=== PATIENT | female | born 1965 | race Caucasian/White ===

== ENCOUNTER 2018-12-20 13:07 | Emergency (ER) | payer OTHER, SELFPAY ==
[2018-12-20 13:09] VITALS: BP 168/75; PULSE 68; RESP 18; TEMP 36.5; O2SAT 100
--- NOTE | 2018-12-20 13:30 | DI.RAD_ITS ---
SYMPTOMS/DIAGNOSIS: ELBOW PAIN; SHOULDER PAIN RIGHT ELBOW: Three views. No acute bone or joint abnormality is identified. The soft tissues are unremarkable. IMPRESSION: No acute abnormality. RIGHT SHOULDER: Five views. No bone or joint abnormality is identified. The soft tissues are unremarkable. IMPRESSION: No acute abnormality.
--- NOTE | 2018-12-20 13:30 | DI.CT_ITS ---
SYMPTOMS/DIAGNOSIS: HEADACHE CT BRAIN: No priors. A noncontrast cranial CT was performed. The ventricular system is normal in appearance. There is no evidence of an intracranial mass lesion. There is no evidence of a subdural or epidural hematoma. No focal areas of decreased attenuation are seen. IMPRESSION: Normal noncontrast cranial CT. The findings were discussed with the Emergency Department on the date of the examination.
--- NOTE | 2018-12-20 13:35 | W.ED.GENAD ---
Discharge Plan Disposition Patient Disposition: HOME Discharge Details Chief Complaint: GenMedical Clinical Impression: Headache, Medial epicondylitis of right elbow, Pain in right shoulder Primary Care Provider: None,None ED Provider: Fadi Klein Home Meds and New Rx's Prescriptions: No Action No Known Home Meds RF: 0 Discharge Instructions Instructions: Tennis Elbow (ED), Shoulder Pain (ED), General Headache (ED) Additional Instructions: It is recommended that you stay well-hydrated and get plenty of rest. You may use Excedrin Migraine, naproxen, or ibuprofen or other gnks-bea-pxagxip medications as needed for continued discomfort. Please use provided forearm brace over the next 2 weeks to see if this helps resolve your symptoms. Feel free to return to the emergency department for any worsening symptoms or further concerns you may have otherwise follow the recommended follow-up schedule with your primary care provider. Stand Alone Forms: Work Release Referrals: [facility] [Provider Group] (As needed for reassessment) Medical Decision Making Patient presenting to the emergency department for chief complaint of right arm numbness and tingling that is intermittent and more persistent in the morning, and headache and malaise that she has had over the past couple days. Patient did see primary care provider who was ordered an outpatient MRI but has not been scheduled yet. Patient states today she had increase in her symptoms and was concerned so came into the emergency department. Patient states some chills without fever, denies focal neurological deficits, denies chest pain shortness of breath. Physical exam shows medial epicondyle tenderness with resolution of symptoms with counterforce pressure of the forearm. And anterior right shoulder tenderness. Examination of right upper extremity is otherwise unremarkable. neurological exam is unremarkable, no meningeal symptoms, normal cardiac and respiratory examination. Plan to check labs and noncontrast CT head. Given that patient's numbness and tingling has been going on for weeks now with associated headache over the last couple days I do feel that CT imaging is warranted but feel that patient may be experiencing migraine headache with associated tendinopathy's of the right upper extremity. Pending results patient given IV fluids and ketorolac After review of labs and CT imaging showing no acute abnormalities patient was reassessed. Patient states improvement of headache symptoms, blurry vision, and right upper extremity discomfort. Patient given a counterforce brace for right forearm and work note so that she may rest over the next couple days. Patient encouraged to use Excedrin Migraine or other NSAIDs [id number] as needed for discomfort. Given patient's complaint of headache fatigue and numbness and tingling I do see primary care providers concern for MS as stated by patient, but at this time I feel that patient's symptoms may be tendinopathy's and secondary headache. Given patient's complaint of stiff neck and chills along with headache she was offered a lumbar puncture but she refused this at this time. Patient is stable nontoxic and improving with conservative therapy so I do feel that this is okay and I also feel that patient may wait for MRI head she has no for focal neurological findings on exam. Return precautions discussed. After discussion of diagnosis and plan of care patient has no further needs, questions, or concerns and states clear understanding to return to the emergency department for any worsening symptoms or further concerns HPI General Mode of arrival: ambulatory. Date/Time Provider Initiated Documentation: 12/20/18 13:11. Limitations to Documentation: no limitations. Information obtained by: patient and RN notes reviewed. History of Present Illness 53 year old F presents to the emergency department with the chief complaint of right arm numbness, headache, fatigue, described as moderate, with intensity rated at 6. Quality is described as aching, and is localized to the head, right and upper extremity. Patient started experiencing this day(s) (2) and it has been constant. No relieving factors improve symptom(s), Patient did receive the following treatments prior to arrival, none Related Data Home Medications Medication Instructions Recorded Confirmed Unknown [No Known Home Meds] 12/20/18 12/20/18 Allergies Allergy/AdvReac Type Severity Reaction Status Date / Time No Known Allergies Allergy Unverified 12/20/18 13:12 General Stated Complaint: GenMedical SILVA: 3 Review of Systems Constitutional Denies body ache(s), Reports chills, Denies fever(s), Reports headache(s) and Reports malaise Eyes Denies change in vision ENT Denies dizziness, Reports headache(s) and Reports neck pain Cardiovascular Denies chest pain, Denies syncope and Denies dyspnea Respiratory Denies cough and Denies dyspnea Gastrointestinal Denies abdominal pain, Denies nausea and Denies vomiting Musculoskeletal Denies back pain, Reports neck pain, Reports numbness, Reports radiating pain into limb and Denies tingling Neurologic Reports as per HPI, Denies dizziness, Denies syncope, Reports headache(s), Reports numbness, Denies sensory deficit and Denies tingling [facility] Social History Smoking and Tabacco status: Current every day Exam Const General: cooperative, healthy appearing, no acute distress and well groomed Orientation: alert, awake and oriented x3 HENMT Head: normal to inspection and atraumatic Ears: hearing grossly normal bilaterally and unable to visualize TM bilaterally (Due to cerumen impaction) Mouth: oral mucosae normal, lip normal, tongue normal and moist mucous membranes Throat: posterior oropharynx normal, tonsils normal and uvula midline Eyes Visual Hardwick: normal visual hardwick by confrontation Alignment and Position: alignment normal Periorbital: periorbital findings normal Eyelids: eyelids normal Sclera: sclerae normal Cornea: corneas normal Pupils: PERRL EOM: EOM intact bilaterally and No nystagmus Neck Neck: normal visual inspection, full ROM, no lymphadenopathy and no meningeal signs Thyroid: lateral enlargement on the right and nontender Resp Effort & Inspection: normal respiratory effort and able to speak in complete sentences Auscultation: clear to auscultation bilaterally Cardio Rate: regular rate Rhythm: regular rhythm Heart Sounds: S1 normal and S2 normal Neuro General: alert, awake, oriented x3, gait normal, tone normal, moves all extremities, CN's II-XI intact bilaterally and not confused Cranial Nerves: no nystagmus Cognition: normal cognition Speech: speech normal Motor: muscle tone normal throughout, strength 5/5 throughout, no pronator drift, no movement abnormalities noted and no fasciculations Sensory Exam: no sensory deficits noted Coordination: hvxhue-yi-koal test normal, Does not sway with eyes open, rapid alternating movement UE normal and rapid alternating movement LE normal Extrem Right upper extremity: shoulder/upper arm Details: tenderness Location: over the subacromial bursa and over the deltoid bursa, axillary nerve sensory function normal and normal ROM; no swelling, elbow/forearm Details: tenderness Location: of the olecranon and of the medial epicondyle, normal ROM and distal pulses intact; no swelling and wrist Details: normal to inspection and normal ROM; no tenderness Left upper extremity: normal to inspection Course Vital Signs Temperature 36.5 C 12/20/18 13:09 Pulse 68 12/20/18 13:09 Respiratory Rate 18 12/20/18 13:09 Blood Pressure 168/75 H 12/20/18 13:09 Pulse Oximetry 100 12/20/18 13:09 Temperature 36.5 C 12/20/18 13:09 Temperature Source Skin 12/20/18 13:09 Pulse 68 12/20/18 13:09 Respiratory Rate 18 12/20/18 13:09 Blood Pressure 168/75 H 12/20/18 13:09 Pulse Oximetry 100 12/20/18 13:09 Oxygen Delivery Method Room Air 12/20/18 13:09 Oxygen Flow Rate 0 12/20/18 13:09 Pain Level 6 12/20/18 13:09
[2018-12-20 13:45] LABS: Abs Immature Grans 0.02 k/cumm (0.0-0.09); Absolute Basophil Count 0.04 k/cumm (0.0-0.2); Absolute Eosinophil Count 0.34 k/cumm (0.0-0.7); Absolute Lymphocyte Count 1.49 k/cumm (1.2-3.4); Absolute Neutrophil Count 6.42 k/cumm (1.2-6.7); Basophils % 0.4; Eosinophils % 3.8; HGB 13.7 g/dL (12.0-15.5); Immature Grans % 0.2; Lymphocytes % 16.7; Mean Corp. HGB Concentration 33.4 g/dL (32.0-36.0); Mean Corpuscular Hemoglobin 29.8 pg (27.0-33.0); Mean Corpuscular Volume 89.1 fL (80-95); Mean Platelet Volume 11.1 fL (8.0-11.0); Monocytes % 6.7; Neutrophils % 72.2; Platelet Count 240 x1000/uL (130-400); RBC Distribution Width 12.5 % (11.7-14.6); White Blood Cell Count 8.91 k/cumm (4.4-10.8)
[2018-12-20] MEDS: Normal Saline 1,000 ML 1000 ML IV (13:45)
[2018-12-20] MEDS: Ketorolac 30 MG/ML VIAL IVP (13:50)
[2018-12-20 14:05] LABS: ALT 20 U/L (12-78); AST 18 U/L (15-37); Albumin 3.3 g/dL (3.4-5.0); Alkaline Phosphatase 77 U/L (46-116); Anion Gap 5.3 mmol/L (3-11); BUN 15 mg/dL (7-18); Bilirubin, Total 0.5 mg/dL (0.2-1.0); CO2 28.7 mmol/L (21.0-32.0); CREATININE 0.75 mg/dL (0.55-1.02); Calcium 9.1 mg/dL (8.5-10.1); Chloride 105 mmol/L (98-107); Glucose 127 mg/dL (70-100); Potassium 3.8 mmol/L (3.5-5.1); Sodium 139 mmol/L (136-145); TSH (W/Ref FT4) 1.45 uIU/mL (0.358-3.74); Total Protein 7.1 g/dL (6.4-8.2)
[2018-12-20 16:00] VITALS: BP 152/64; PULSE 57; RESP 16; TEMP 36.5; O2SAT 96
[2018-12-20 18:42] VITALS: RESP 16
== END 2018-12-20 16:01 | disposition home or self-care (01) ==
PROVIDERS: Emergency Provider Nurse Practitioner Family
DX: R51 Headache (principal); M77.01 Medial epicondylitis, right elbow; M25.511 Pain in right shoulder
CPT/HCPCS: 36415; 80053; 96361; 96374; 99284; 70450; 73030; 73080; 84443; 85025; J1885

== ENCOUNTER 2018-12-28 00:33 | Outpatient (CLI) | payer OTHER, SELFPAY ==
[2018-12-28] MEDS: Gadoterate meglumine 20 ML VIAL IVP (10:27)
--- NOTE | 2018-12-28 10:38 | DI.MRI_ITS ---
SYMPTOMS/DIAGNOSIS: MIGRAINE HEADACHE, G43.909, PARESTHESIAS, R20.2 MRI OF THE BRAIN: Pre and post contrast examination was performed. Comparison CT scan is 12/20/18. There are a few tiny foci of T 2 hyperintensity in the white matter on the FLAIR and T 2 weighted images. Otherwise there is normal eric/white matter signal. The ventricles are intact. The basilar cisterns are patent. There is no acute midline shift or mass effect. The diffusion weighted images have a normal appearance. Gradient images show no intracranial hemorrhage. Following contrast administration no enhancing masses are seen. There is a flow void in the [facility]. The pituitary gland appears grossly unremarkable. The visualized paranasal sinuses are clear. IMPRESSION: A few tiny T 2 hyperintense foci in the white matter. This may represent early small vessel ischemic disease. Demyelinating processes can not be entirely excluded. No enhancing masses, acute infarct or intracranial hemorrhage is present.
== END 2018-12-28 00:53 ==
PROVIDERS: PCP Internal Medicine; Visit Provider Internal Medicine
DX: G43.909 Migraine, unspecified, not intractable, without status migrainosus (principal); R20.2 Paresthesia of skin; I67.89 Other cerebrovascular disease
CPT/HCPCS: 70553

== ENCOUNTER 2020-01-23 10:00 | Outpatient (CLI) | payer SELFPAY ==
[2020-01-28 08:19] LABS: COVID-19 RT-PCR Result Not Detected (NotDetected)
== END 2020-01-23 10:20 ==
PROVIDERS: PCP Internal Medicine; Visit Provider Internal Medicine
DX: Z11.59 Encounter for screening for other viral diseases (principal)
CPT/HCPCS: U0003

== ENCOUNTER 2020-10-28 14:51 | Outpatient (REF) | payer OTHER, SELFPAY ==
[2020-10-28 13:20] LABS: Abs Immature Grans 0.01 10^3/uL (0.0-0.06); Absolute Basophil Count 0.06 10^3/uL (0.0-0.2); Absolute Eosinophil Count 0.32 10^3/uL (0.0-0.7); Absolute Lymphocyte Count 1.27 10^3/uL (1.2-3.4); Absolute Monocyte Count 0.52 10^3/uL (0.1-0.8); Absolute Neutrophil Count 3.16 10^3/uL (1.2-6.7); Basophils % 1.1; HCT 40.3 % (36.0-46.0); HGB 13.2 g/dL (11.2-15.7); Immature Grans % 0.2; Lymphocytes % 23.8; MCH 28.3 pg (27.0-33.0); MCHC 32.8 % (32.0-36.0); MCV 86.5 fL (80-95); MPV 10.7 fL (8.0-11.0); Monocytes % 9.7; Neutrophils % 59.2; Nucleated RBC 0 %; Platelet Count 294 10^3/uL (130-400); RBC 4.66 10^6/uL (3.93-5.22); RDW 11.4 % (11.7-14.6); RDW-SD 36.1 fL; WBC 5.34 10^3/uL (4.4-10.8)
[2020-10-28 13:50] LABS: ALT 23 U/L (14-59); AST 17 U/L (15-37); Albumin 3.8 g/dL (3.4-5.0); Alkaline Phosphatase 74 U/L (46-116); Anion Gap 8.6 mmol/L (3-11); BUN 14 mg/dL (7-18); Bilirubin, Total 0.5 mg/dL (0.2-1.0); CO2 24.4 mmol/L (21.0-32.0); CREATININE 0.85 mg/dL (0.55-1.02); Calcium 9.4 mg/dL (8.5-10.1); Chloride 105 mmol/L (98-107); Glucose 99 mg/dL (74-106); Potassium 4.6 mmol/L (3.5-5.1); Sodium 138 mmol/L (136-145); Total Protein 7.7 g/dL (6.4-8.2)
== END 2020-10-28 15:11 ==
LOC: NCHCN 14:51
PROVIDERS: PCP Internal Medicine; Visit Provider Family Medicine
DX: R10.9 Unspecified abdominal pain (principal); R09.89 Other specified symptoms and signs involving the circulatory and respiratory systems
CPT/HCPCS: 80053; 85025

== ENCOUNTER 2020-10-31 09:03 | Outpatient (CLI) | payer OTHER, SELFPAY ==
--- NOTE | 2020-10-31 | DI.CT_ITS ---
EXAM: CT CHEST PE CTA CLINICAL HISTORY: R91.1,SOLITARY NODULE,DISCOMFORT LUNG AREA, ? PE. TECHNIQUE: Imaging Protocol: Axial CT angiography was performed with multi-slice acquisition and mu lti-planar and/or 3D reconstructions. CONTRAST MATERIAL: Intravenous: Omnipaque 350 Contrast volume:structured data in ml COMPARISON: CT CT ABDOMEN PELVIS W from 10/28/2020 FINDINGS: Pulmonary Arteries: No evidence of filling defect to suggest pulmonary emboli. Tracheobronchial tree: Patent where visualized. Mediastinum and Tina: There is extensive mediastinal and bilateral hilar adenopathy. There is a 2.5 cm carinal lymph node present. There is a 1.6 cm left hilar lymph node. There is a 1.4 cm right hil ar lymph node. No significant axillary adenopathy. The thyroid gland is enlarged with bilateral thy roid nodules. The largest is on the left and measures 2.5 cm it shows some internal and peripheral c alcification. Pulmonary parenchyma: No consolidation or dominant measurable mass. No focal consolidation is presen t. Dependent atelectasis is seen in the lung bases. There is a 1 cm pulmonary nodule in the medial aspect of the right middle lobe. No architectural distortion. Pleura: No effusion or pneumothorax. Heart: The heart is not dilated. No coronary artery calcifications are seen. No significant pericardi al effusion. Aorta: Thoracic aorta non-dilated. No evidence of dissection. Upper abdomen: Cholelithiasis. Bones: Degenerative changes in the spine. Soft tissues: Unremarkable. IMPRESSION: 1. No evidence of pulmonary embolism, thoracic aortic dissection or aneurysm. 2. Extensive mediastinal and bilateral adenopathy. Differential considerations include metastatic di sease, lymphoma, or infectious or inflammatory process. 3. 1 cm right middle lobe pulmonary nodule. PET-CT scan may be considered for further evaluation. 4. Cholelithiasis. RADIATION DOSE DELIVERED: 541.46mGy.cm Total DLP DATA REPOSITORY: All CT scans at this facility are submitted to the National Radiology Data Registry (NRDR) Dose Index Registry (DIR) with the [employer] (ACR). RADIATION OPTIMIZATION: All CT scans at this facility use at least one of these dose optimization te chniques: automated exposure control; mA and/or kV adjustment per patient size (includes targeted exa ms where dose is matched to clinical indication); or iterative reconstruction.
[2020-10-31] MEDS: Normal Saline - Diluent 50 ML VIAL IV (08:51)
[2020-10-31] MEDS: Omnipaque 350 MG/ML 100 ML BTL IV (08:51)
--- OUTSIDE RECORDS SUMMARY | 2020-10-31 09:18 | XMS_ITS ---
:1965 Author Care Team Providers Name Role Phone DR. GYPSY BARROS Primary Care Provider [phone] DR. GYPSY BARROS Referring Provider [phone] Allergies Code Code System Name Reaction Severity Status Onset NKDA ? Medications Name Status Start Date Stop Date ? ? azithromycin 500 mg tablet Active 10/14/2020 Not a vailable TAKE 1 TABLET BY MOUTH ONCE DAILY FOR [address]-ER 9 mg tablet,delayed and extended release Active ? Not available Take 1 tablet every day by oral route for 90 days. Dulcolax (bisacodyl) 5 mg tablet,delayed release Completed ? 10/14/2020 Take 2 tablets twice a day by oral route as directed. Miralax 17 gram/dose oral powder Completed ? 10/14/2020 Take 255 g every day by oral route as directed for 1 day. ondansetron HCl 4 mg tablet Active 10/14/2020 Not available take 1 tablet by mouth every 8 hours penicillin V potassium 500 mg tablet Active 10/14/2020 Not available TAKE TWO TABLETS BY MOUTH NOW THEN HAYLEY E ONE TABLET BY MOUTH EVERY 6 HOURS UNTIL GONE Problems Name Status Onset Date Source ? Cyst of Thyroid Active ? ? Anemia Active ? ? Tobacco User Active ? ? Migraine Active ? ? Ulnar Neuropathy Active ? ? Impacted Cerumen Active ? ? Bilateral Tinnitus Active ? ? Paresthesia Active ? ? Family History of Cancer of Colon Active ? ? Procedures Date Name Performed by ? ? Breast Reduction Information not avai lable ? Oophorectomy Information not avai lable ? Bilateral Tubal Ligation Information not available ? Total Hysterectomy Information not avai lable ? Colonoscopy Information not avai lable ? Section Information not avai lable 10/29/2020 CT, Angiogram, Chest, W/ Contrast Xray N [facility] [address] [place], [place] [address] (Work Place) Results Lab Results Date Name Specimen Result Interpretation Description Value Range Status Address ? 10/29/2020 Erythrocyte WB High Esr 81.00 0.00-20.00 Cristiana l Aaron Sedimentation mm/HR mm/HR Hos pital Rate by (Lab): Birdie cooney [facility] 10/29/2020 C Reactive P ? Crp <0.20 ? Final Co ttage Protein, QN, mg/dL Hosp ital Serum or Plasma ( Lab): 90 [facility] Past Encounters 10/29/2020 Hemorrhagic Diarrhea; Solitary Nodule of Lung; Aneurysm of Splenic Artery Kevon Turner, DO: [address] [place] [address], Ph. 10/01/2020 Viral Screening; Iron Deficiency Anemia; Screening for Malignant Neoplasm of Colon Kevon Turner, DO: [address], [place] [address], Ph. Social History Tobacco Smoking Status Former Smoker Vaccine List None recorded. Plan of Care Reminders Provider Appointments None ? ? recorded. Lab None ? ? recorded. Referral None ? ? recorded. Procedures None ? ? recorded. Surgeries None ? ? recorded. Imaging None ? ? recorded. Vitals 10/29/2020 12:45PM FOLLOW UP Height Weight BMI Blood Pressure 170.18 cm 95.25 kg 32.9 kg/m2 134/92 mm[Hg] 10/01/2020 03:45PM COLONOSCOPY CONSULT Height Weight BMI Blood Pressure 170.18 cm 95.25 kg 32.9 kg/m2 112/82 mm[Hg]
--- OUTSIDE RECORDS SUMMARY | 2020-10-31 09:18 | XMS_ITS ---
:1965 Author Care Team Providers Name Role Phone BAMBI BARROS Primary Care Provider [phone] Allergies Code Code System Name Reaction Severity Status Onset NKDA ? Medications Name Status Start Date Stop Date ? ? azithromycin 500 mg tablet Active ? Not a vailable Take 1 tablet every day by oral route for 3 days. Problems None recorded. Procedures Date Name Performed by ? ? Bilateral Tubal Ligation Information not available ? Delivery Information not avai lable ? Reduction Mammoplasty Information not av ailable ? Hysterectomy Information not avai lable Results Lab Results None recorded. Past Encounters 06/20/2020 Ready for Enhanced Communication; Aldair Kumar, BRYANT: [address] [address], Ph. Social History Tobacco Smoking Status Former Smoker (1 PPD) Vaccine List None recorded. Plan of Care Reminders Provider Appointments None ? ? recorded. Lab None ? ? recorded. Referral None ? ? recorded. Procedures None ? ? recorded. Surgeries None ? ? recorded. Imaging None ? ? recorded. Vitals None recorded.
--- OUTSIDE RECORDS SUMMARY | 2020-10-31 09:18 | XMS_ITS | Encounter Summary ---
:1965 Author Care Team Providers Name Role Phone Dr. Adriel Liu Primary Care Provider [phone] Dr. Adriel Liu Referring Provider [phone] Reason for Visit Anemia colo consult Assessment and Plan 1. Viral screening Preprocedure briscoe virus scre ening ? COVID-19 RNA (SARS-CoV-2), QL, machine fixer-PCR, respiratory specimen 2. Iron deficiency anemia Recommended upper and lower en doscopy to assess for source of blood loss, evaluate for etiology of colitis, and ru le out malignancy. ? upper endoscopy (EGD) with diagnostic colonoscopy (PROC) 3. Screening for malignant neopl asm of colon Include for family history of colorectal cancer z80.0, and personal history of colon polyps z86.010 ? Dulcolax (bisacodyl) 5 mg tablet,delayed release ? colonoscopy prep ? Miralax 17 gram/dose oral powder Discussion Note: None recorded. Plan of Care Reminders Provider Appointments None recorded. ? ? Lab COVID-19 RNA [facility] (SARS-CoV-2), , 10/01/2020 (Lab) machine fixer-PCR, Respiratory Specimen Referral None recorded. ? ? Procedures Upper Endoscopy [facility] (EGD) with Diagnostic 10/01/2020 Or Colonoscopy (PROC) Surgeries None recorded. ? ? Imaging None recorded. ? ? Medications Name Start Date ? ? azithromycin 500 mg tablet 10/14/2020 TAKE 1 TABLET BY MOUTH ONCE DAILY FOR [address]-ER 9 mg tablet,delayed and extended rele ase ? Take 1 tablet every day by oral route for 90 days. ondansetron HCl 4 mg tablet 10/14/2020 take 1 tablet by mouth every 8 hours penicillin V potassium 500 mg tablet 10/14/2020 TAKE TWO TABLETS BY MOUTH NOW THEN HAYLEY E ONE TABLET BY MOUTH EVERY 6 HOURS UNTIL GONE Medications Administered None recorded. Vitals Height Weight BMI Blood Pressure 5 ft 7 in 210 lbs 32.9 kg/m2 112/82 mm[Hg] Results Lab Results None recorded. Allergies Code Code System Name Reaction Severity Onset NKDA ? ? ? Problems Name Status Onset Date Source ? [...] lable ? Section Information not avai lable Vaccine List None recorded. Social History Tobacco Smoking Status Former Smoker Alcohol intake Occasional Have you travelled outside of [facility] in the past 14 days? Have you experienced any of the N following symptoms in the past 48 hours? Fever/Chills, Cough, Shortness of breath or difficulty breathing, fatigue, muscle or body aches, headache, new loss of taste or smell, sore throat, congestion or runny nose, nausea or vomiting and/or diarrhea Able to Care for Self Y Smokeless Tobacco Status Never used smokeless tobacco Illicit drugs denies Are you currently waiting on N results of a COVID-19 test? Within the past 14 days, have you N been in close physical contact (6 feet or closer for a cumulative total of 15 minutes) with anyone that is known to have laboratory-confirmed COVID-19? OR Anyone who has any symptoms consistent with COVID-19? Are you isolating or quarantining N because you may have been exposed to a person with COVID-19 or are worried that you may be sick with COVID-19? Tobacco - When did you quit Notes: 11 smoking? Tobacco - Do you use chewing N tobacco? Most Recent Tobacco Use Screening 10/29/2020 E-cigarette/Vape Status Never used electronic cigarettes Tobacco - Do you smoke? N Alcohol - Daily intake: None Functional Status Unknown. Past Encounters 10/01/2020 Viral Screening; Iron Deficiency Anemia; Screening for Malignant Neoplasm of Colon Kevon Turner, DO: [address] [place] [address], Ph. History of Present Illness Note: 55 y/o female referred for anemia. She has had 6 months of intermittent crampy abdominal pain with associated bloody, mucous stools. She c/o early satiety, bloating, nausea. [place] [facility] these episode, and was seen by outside emergency providers in at least two different times. CT imaging at the time both indicated findings of colitis in the transversecolon. She has a family history of colon cancer, sister who from colon cancer, and Crohn's, a second sister with the disease. Review of Systems ? [facility] Comprehens regan Adult Review of System, Brief Gastroenterology ROS Reported By: Patient Constitutional: Constitutional: no fever, no night sweats, no significant weight loss, weight gain (18 lbs), fatigue, lethargy, chills Eyes: Eyes: no vision change, no b lurred vision, no double vision, no history of glauco ma; no loss of vision, no double vision Ear, Nose, Mouth, Throat: Ears: no difficulty hearing; no loss of hearing, no dizziness, no vertigo. Nose: no sinus problems, no nose/sinus problems, no nose bleeds; no epistaxis. Mouth/Throat: no sore throat , no snoring; no hoarseness Cardiovascular: Cardiovascular: NO CHEST RAVI N, no arm pain at rest, no shortness of breath when wal dangelo, no shortness of breath when lying down Respiratory: Respiratory: no cough, no wh eezing, no shortness of breath, no sleep apnea Gastrointestinal: Gastrointestinal: no vomitin g, no constipation, abdominal pain, nausea, frequent diarr hea, indigestion or heartburn. Lower GI: fullness after eat ting , excess gas or bloating, change in bowel/bladder habi ts. Prior History: Crohn's disease, family history of c olon polyps or colon cancer. Hepatology: no history of ch ronic liver disease, no hepatitis or exposure to hep atitis Genitourinary: Genitourinary: no difficulty urinating, no hematuria, no increased frequency Integumentary: Skin: no abnormal mole, no j aundice Musculoskeletal: Musculoskeletal: no muscle a ches, no arthralgias/joint pain, no back pain, no swell ing in the extremities Psychiatric: Psychiatric: no sleep distur bances, no anxiety; no difficulty concentrating Neurologic: Neurologic: no loss of consc iousness, no weakness, no seizures, no headaches Hematologic/Lymphatic: Hematologic/Lymphatic no bru ising, no excessive bleeding Physical Exam ? General Adult Exam Reported By: Patient Constitutional: General Appearance: healthy- appearing, well-developed, overweight. Level of Distress: NAD. Ambu lation: ambulating normally Psychiatric: Insight: good judgement. Men saleem Status: active and alert, normal mood. Orientation: to time, to place, to person. Memory: recent memory normal Head: Head: normocephalic, atrauma tic Eyes: Lids and Conjunctivae: non-i njected, no discharge. Pupils: PERRLA. Corneas: grossly intact. EOM : EOMI. Lens: clear. Sclerae: non-icteric ENMT: Ears: no lesions on external ear. Nose: no lesions on external nose. Lips, Teeth, and Gums: no mouth or lip ulcers, no bleeding gums. Oropharynx: moist muco us membranes Neck: Neck: trachea midline, no ma sses, FROM Lungs: Respiratory effort: no dyspn ea. Auscultation: breath sounds normal, good air movement, no wheezi ng, no rhonchi Cardiovascular: Heart Auscultation: RRR, nor mal S1, normal S2. Pulses including femoral / pedal: normal thro ughout; normal cap refill Abdomen: Inspection and Palpation: so ft, non-distended, no tenderness, no guarding, no rebound tendern ess, no CVA tenderness. Liver: non-tender. Spleen: non-tend er. Hernia: none palpable Rectal: Rectal Exam: ; deferred Musculoskeletal:: Joints, Bones, and Muscles: normal movement of all extremities, no bony abnormalities, no tende rness. Extremities: no cyanosis, no edema Neurologic: Cranial Nerves: grossly inta ct Skin: Inspection and palpation: no rash, no lesions, good turgor
--- OUTSIDE RECORDS SUMMARY | 2020-10-31 09:18 | XMS_ITS | Encounter Summary ---
:1965 Author Care Team Providers Name Role Phone Dr. Adriel Liu Primary Care Provider [phone] Dr. Adriel Liu Referring Provider [phone] Reason for Visit Post-Op Check discuss path results Assessment and Plan 1. Hemorrhagic diarrhea CT findings reviewed, and inci dental findings discussed elsewhere. Given findings on endoscopic biopsies of colit is, and chronicity. Recommended starting treatment for colitis, with budesonide a s recommended treatment due to less systemic effects. Offered antidiarrheal treatment also, but Ms. English declined at this time. Will screen stool pathogens to document that this is not the cause. Plan to refer to GI for further management. ? gastrointestinal pathogens panel, PCR, stool ? celiac disease comprehensi ve panel, serum ? erythrocyte sedimentation rate by westergren method ? C reactive protein, QN, se rum or plasma ? budesonide DR-ER 9 mg tabl et,delayed and extended release ? gastroenterology referral 2. Solitary nodule of lung Incidental finding on CT of pu lmonary nodule, indeterminate. CT angio recommended to ruleout PE vs, adenopathy , vs solid nodule. ? CT, angiogram, chest, w/ c ontrast 3. Aneurysm of splenic artery Current measurement of splenic artery aneurysm is 1.3 cm, recommend follow up CT scan in 6 months to assess for jose nge in size of aneurysm. time of intervention is change in size over 0.5 cm in 6 month s, or greater then 2 cm males, 1.5 cm females. Discussion Note: None recorded.Patient educational handouts: No information available. Plan of Care Reminders Provider Appointments None recorded. ? ? Lab Gastrointestinal [place] Pathogens Panel, PCR, Stool 10/29/2020 [facility] (Lab) ? Celiac Disease Co ttage Comprehensive Panel, Serum 10/29/2020 [facility] (Lab) ? Erythrocyte [place] Sedimentation Rate by 10/29/2020 [facility] ( Lab) Westergren Method ? C Reactive [place] e Protein, QN, Serum or Plasma 10/29/2020 [facility] (Lab) Referral Gastroenterology Elbert Burgos Referral 10/29/2020 Procedures None recorded. ? ? Surgeries None recorded. ? ? Imaging CT, Angiogram, Nv rh Xray Chest, W/ Contrast 10/29/2020 Medications Name Start Date ? ? azithromycin [...] ft 7 in 210 lbs 32.9 kg/m2 134/92 mm[Hg] Results Lab Results Date Name Specimen Result Interpretation Description Value Range Status Address ? 10/29/2020 Erythrocyte WB High Esr 81.00 0.00-20.00 Cristiana Walker Sedimentation mm/HR mm/HR Hos pital Rate by (Lab): [address] [place] [address] 10/29/2020 C Reactive P ? Crp <0.20 ? Final Co ttage Protein, QN, mg/dL [facility] Serum or Plasma ( Lab): [address] [place] [address] Allergies Code Code System Name Reaction Severity [...] CT, Angiogram, Chest, W/ Contrast Xray N [facility] [address] [place], [place] [address] (Work Place) Vaccine List None recorded. Social History Tobacco Smoking Status Former Smoker Alcohol intake Occasional Have you travelled outside of [facility] in the past 14 days? Have [...] intake: None Functional Status Unknown. Past Encounters 10/29/2020 Hemorrhagic Diarrhea; Solitary Nodule of Lung; Aneurysm of Splenic Artery Kevon Fu Turner, DO: [address], [place] [address], Ph. 10/01/2020 Viral Screening; Iron Deficiency Anemia; Screening for Malignant Neoplasm of Colon Kevon Lee Turner, DO: [address], [place] [address], Ph. History of Present Illness Note: Follow up after upper endoscopy and colonoscopy. She has had a persistent lower abdominal pain since endoscopy. She was seen by her primary's office and had a CT A/P, and lab work. Lab work was unremarkable, and CT with several incidental findings. Review of Systems ? [facility] Comprehens regan Adult Review of System, [...]
== END 2020-10-31 09:23 ==
PROVIDERS: PCP Internal Medicine; Visit Provider Surgery
DX: R59.0 Localized enlarged lymph nodes (principal); R91.1 Solitary pulmonary nodule; K80.20 Calculus of gallbladder without cholecystitis without obstruction
CPT/HCPCS: 71275; J3490

== ENCOUNTER 2020-11-17 01:34 | Emergency (ER) | payer OTHER, SELFPAY ==
[2020-11-17] VITALS (14 sets, daily range): BP systolic 131–158; BP diastolic 74–89; PULSE 56–71; RESP 12–23; TEMP 36.4; O2SAT 92–99
--- NOTE | 2020-11-17 01:30 | DI.CT_ITS ---
EXAM: CT ABDOMEN CTA CLINICAL HISTORY: significant pain and vomit, ?mesenteric ischemia. TECHNIQUE: Imaging Protocol: Axial computed tomography images with coronal and sagittal reformatted images were created and reviewed CONTRAST MATERIAL: Intravenous: Omnipaque 350 Contrast volume:100 ml Oral: None Intravenous: Omnipaque 350 Contrast volume:85 COMPARISON: CT CT CHEST PE CTA from 10/31/2020 FINDINGS: ABDOMEN: Upper most images of this study feel partially included bilateral hilar adenopathy (see prior report CT scan 10/31/2020) CTA: There is no evidence of abdominal aortic aneurysm. No significant atherosclerotic disease in th e celiac artery and its branches. Superior mesenteric artery is also nicely patent as is the inferio r mesenteric artery. No obvious renal artery stenosis. No evidence of significant stenosis at the a ortic bifurcation nor significant atherosclerotic involvement of the common and external iliac arteri es nor the internal iliac arteries. No plaque evident. No aneurysms. There is no ascites. LIVER: There are no focal hepatic lesions nor dilatation of intrahepatic ducts. GALLBLADDER/BILIARY: There are multiple similar-appearing gallstones with an average size of 9 millim eters in the gallbladder lumen. There is no evidence of acute cholecystitis. There is no dilatation of the biliary tree, both intra and extrahepatic. CBD is not dilated. PANCREAS: No evidence of pancreatic mass nor dilatation of the pancreatic duct. SPLEEN: Spleen is not enlarged. Splenic and portal veins cannot be assessed on arterial phase study. ADRENALS: There are no significant adrenal masses. KIDNEYS: No cysts evident. No calculi nor hydronephrosis. No solid renal masses. LYMPH NODES: Multiple abnormal slightly enlarged lymph nodes noted in the mesentery and para-aortic. Also enlarged lymph nodes around the aortic bifurcation and a few enlarged lymph nodes along the nannette ac chains. ABDOMINAL WALL/GI: Anterior abdominal wall umbilical hernia which contains fat but no bowel loops. N o bowel obstruction. PELVIS: LYMPH NODES: There are multiple slightly prominent lymph nodes noted in the mesentery GI: No evidence of appendicitis.No evidence of sigmoid diverticulitis.However, there is some diffuse thickening of the wall of the sigmoid which is possibly related to colitis pattern and similar patter n is seen in the transverse colon ascending-right colon. Difficult to assess without intraluminal co ntrast. URINARY BLADDER: No calculi nor masses evident REPRODUCTIVE: Uterus and adnexal regions unremarkable. No free fluid. OSSEOUS: No significant osseous lesions. IMPRESSION: 1. No significant findings in the abdominal aorta and aortoiliac segments no off the main branches of the abdominal aorta. 2. Main finding here is lymphadenopathy in the abdomen and pelvis,, suspicious for lymphoma. I note the patient has had prior studies showing significant adenopathy in the chest.. Indeed, the uppermos t images of today's abdominal study reveal adenopathy in the partially visualized hilar regions. 3. Possible colitis pattern although somewhat difficult to assess accurately without contrast within the lumen of the colon. 4. Cholelithiasis noted Final report called by myself to ER physician 11/17/2020 9:10 a.m. RADIATION DOSE DELIVERED: 1,972.59mGy.cm Total DLP 1,972.59mGy.cm Total DLP DATA REPOSITORY: All CT scans at this facility are submitted to the National Radiology Data Registry (NRDR) Dose Index Registry (DIR) with the [employer] (ACR). RADIATION OPTIMIZATION: All CT scans at this facility use at least one of these dose optimization te chniques: automated exposure control; mA and/or kV adjustment per patient size (includes targeted exa ms where dose is matched to clinical indication); or iterative reconstruction.
--- NOTE | 2020-11-17 01:46 | ED.GENADUL_ITS ---
Discharge Plan Disposition Patient Disposition: HOME Condition: Stable Discharge Details Clinical Impression: Abdominal pain, Colitis Primary Care Provider: Adriel Liu ED Provider: Levon Lee Home Meds and New Rx's Prescriptions: New metronidazole [Flagyl] 500 mg tablet 500 mg PO Q8H Qty: 21 RF: 0 prochlorperazine maleate [Compazine] 10 mg tablet 10 mg PO TID PRN (Reason: nausea and vomiting) Qty: 30 RF: 0 Continued ciprofloxacin HCl 500 mg tablet 50 mg PO BID RF: 0 Probiotic 3 billion cell Capsule 3,000 mmu cells PO DAILY RF: 0 Discharge Instructions Instructions: Colitis (ED) Additional Instructions: Your blood work did not show any concerning findings and your cat scan showed mild inflammation of the colon follow up with your primary care provider within 1 week especially if symptoms continue if you feel more ill, have worsening pain or persistent vomit return to the emergency department Medical Decision Making 55 yo female who denies significant pmhx, has had prior tubal ligation and hysterectomy otherwise no prior abdominal surgeries comes in with acute onset n/v and abdominal pain starting around 10pm after lying in bed. She states she felt well most of the day no fevers or pain or n/v during the day. Denies any chest pain or dyspnea. She was given 4mg iv zofran with no significant relief. She localizes the pain primarily in the left lower and right lower abodmen and did notice some blood in her stool and has had diarrhea. She does have loose mucous stool here with no gross blood but is guiac positive. She is tender with palpation without guarding to the llq and rlq. Given acute onset of symptoms concern for possible mesenteric ischemia vs sbo vs diverticulitis, will obtain labs and cta to evaluate and tx with compazine, she declines pain medicine at this time. pt sleeping on reassessment, blood work doesn't show any significant acute abnormalities, ct shows possible colitis. She is on cipro already so will add flagyl and prn compazine. She feels better and feels comfortable with d/c has no significant tenderness on repeat abdominal exam. Advised to f/u with pcp within a week and return precautions given Differential Diagnosis Differential Diagnosis: diverticulitis, sbo, mesenteric ischemia Medical Records Medical records reviewed: Yes I reviewed the patient's medical records. Imaging Data Radiologic Study: Attestation: I personally reviewed and interpreted this imaging study as follows: Imaging: CT Scan Radiologist's impression: IMPRESSION: Question minimal element of infectious or inflammatory colitis with evaluation limited due to incomplete distention. Clinically correlate. Lab Data Lab results reviewed: Yes I reviewed the patient's lab results. HPI General Mode of arrival: EMS . Date/Time Provider Initiated Documentation: 11/17/20 01:44 . Limitations to Documentation: no limitations . Information obtained by: patient . History of Present Illness 55 year old F presents to the emergency department with the chief complaint of abdominal pain, described as moderate, Quality is described as other (cramping), and is localized to the abdomen. Patient reports no radiation. Patient started experiencing this hour(s) (3) and it has been constant. No relieving factors improve symptom(s), No exacerbating factors reported . Patient notes nausea/vomiting. Patient did receive the following treatments prior to ar [facility], other (4mg zofran with ems, no significant relief) Related Data Home Medications Medication Instructions Recorded Confirmed Probiotic 3,000 mmu cells PO DAILY 11/17/20 11/17/20 ciprofloxacin HCl 50 mg PO BID 11/17/20 11/17/20 metronidazole [Flagyl] 500 mg PO Q8H #21 tab 11/17/20 prochlorperazine maleate 10 mg PO TID PRN #30 tab 11/17/20 [Compazine] Previous Rx's Medication Instructions Recorded metronidazole [Flagyl] 500 mg PO Q8H #21 tab 11/17/20 prochlorperazine maleate 10 mg PO TID PRN #30 tab 11/17/20 [Compazine] Allergies Allergy/AdvReac Type Severity Reaction Status Date / Time No Known Allergies Allergy Unverified 11/17/20 01:42 General Stated Complaint: GI Bleed SILVA: 3 Review of Systems All systems reviewed & are unremarkable except as noted in HPI and below Constitutional Constitutional: Denies chills, Denies fever(s) and Denies weakness Cardiovascular Cardiovascular: Denies chest pain and Denies dyspnea Respiratory Respiratory: Denies cough and Denies dyspnea Musculoskeletal Musculoskeletal: Denies joint swelling Neurologic Neurologic: Denies weakness Psychiatric Psychiatric: Denies depression PFSH Surgical History (Updated 11/17/20 @ 01:43 by Maya Peralta) History of hysterectomy Social History Smoking/Tobacco Use Status: Former Tobacco Use Quit Date: 10/24/19 Smoking risk assessment performed?: Yes Drug use: Never Do you feel safe at home: Yes Do you feel safe in your relationship?: Yes Exam Const General: no acute distress Orientation: alert HENMT Head: normal to inspection Ears: external ears normal General nose exam: external nose normal Mouth: moist mucous membranes Eyes General: appearance normal, both eyes and all related structures Neck Neck: normal visual inspection Resp Effort & Inspection: normal respiratory effort and able to speak in complete sentences Cardio Rate: regular rate GI Palpation: tender Skin General skin exam: no rashes or lesions noted Neuro General: patient alert and patient oriented x3 Extrem General: normal to inspection Psych Mental Status: mental status grossly normal Course Vital Signs Vital signs: Vital Signs Temperature 36.4 C L 11/17/20 01:32 Pulse 62 11/17/20 01:32 Respiratory Rate 18 11/17/20 01:32 Blood Pressure 158/82 H 11/17/20 01:32 Pulse Oximetry 99 11/17/20 01:32 Temperature 36.4 C L 11/17/20 01:32 Temperature Source Temporal Artery Scan 11/17/20 01:32 Pulse 62 11/17/20 01:32 Respiratory Rate 18 11/17/20 01:32 Blood Pressure 158/82 H 11/17/20 01:32 Pulse Oximetry 99 11/17/20 01:32 Pain Level 5 11/17/20 01:32
[2020-11-17] MEDS: Prochlorperazine 10 MG/2 ML VIAL IVP (01:59)
[2020-11-17 02:01] LABS: Lactate 1.5 mmol/L (0.6-1.4)
[2020-11-17 02:06] LABS: Abs Immature Grans 0.01 10^3/uL (0.0-0.06); Absolute Basophil Count 0.05 10^3/uL (0.0-0.2); Absolute Eosinophil Count 0.32 10^3/uL (0.0-0.7); Absolute Lymphocyte Count 1.13 10^3/uL (1.2-3.4); Absolute Monocyte Count 0.61 10^3/uL (0.1-0.8); Absolute Neutrophil Count 5.94 10^3/uL (1.2-6.7); Basophils % 0.6; HCT 40.3 % (36.0-46.0); HGB 13.2 g/dL (11.2-15.7); Immature Grans % 0.1; MCHC 32.8 % (32.0-36.0); MCV 85.6 fL (80-95); MPV 10.9 fL (8.0-11.0); Monocytes % 7.6; Neutrophils % 73.7; Nucleated RBC 0 %; Platelet Count 292 10^3/uL (130-400); RBC 4.71 10^6/uL (3.93-5.22); RDW 11.6 % (11.7-14.6); RDW-SD 35.8 fL; WBC 8.06 10^3/uL (4.4-10.8)
[2020-11-17 02:17] LABS: ALT 19 U/L (14-59); AST 16 U/L (15-37); Albumin 3.6 g/dL (3.4-5.0); Alkaline Phosphatase 79 U/L (46-116); Anion Gap 9.1 mmol/L (3-11); BUN 19 mg/dL (7-18); Bilirubin, Direct 0.08 mg/dL (0.00-0.20); Bilirubin, Total 0.5 mg/dL (0.2-1.0); CO2 23.9 mmol/L (21.0-32.0); CREATININE 1.06 mg/dL (0.55-1.02); Calcium 9.3 mg/dL (8.5-10.1); Chloride 105 mmol/L (98-107); Estimated GFR 53.43 (mL/min/1.73m2); Glucose 121 mg/dL (74-106); Lipase 43 U/L (73-393); Magnesium 1.8 mg/dL (1.8-2.4); Potassium 3.7 mmol/L (3.5-5.1); Sodium 138 mmol/L (136-145); Total Protein 7.7 g/dL (6.4-8.2)
[2020-11-17 02:18] LABS: Bilirubin Negative (Negative); Blood Negative (Negative); Clarity Sl Cloudy (Clear); Glucose Negative (Negative); Ketones Negative (Negative); Leukocyte Esterase Negative (Negative); Nitrite Negative (Negative); Specific Gravity >= 1.030 (1.005-1.025); Urobilinogen 0.2 EU/dL (Up TO 0.2); pH 5.5 (5-8)
[2020-11-17] MEDS: Omnipaque 350 MG/ML 100 ML BTL IJ (02:21)
[2020-11-17] MEDS: Normal Saline Flush 10 ML SYR IVP (02:23)
[2020-11-17] MEDS: Normal Saline - Diluent 50 ML VIAL IV (02:23)
[2020-11-17 02:26] LABS: PTT Activated 21.7 sec (21.0-27.5); Prothrombin Time 10.4 sec (9.3-11.0)
[2020-11-17 02:32] LABS: ETHANOL BLOOD < 3.0 mg/dL (<3)
--- NOTE | 2020-11-17 02:41 | DI.VRAD_ITS ---
PROCEDURE INFORMATION: Exam: CT Angiography Abdomen and Pelvis With Contrast, GI Bleeding Exam date and time: 11/17/2020 1:46 AM Age: 55 years old Clinical indication: Localized; Lower; Prior surgery; Surgery date: 6+ months; Surgery type: Hysterectomy; Patient HX: Significant abdominal pain, vomiting, bloody stools; Additional info: ? Mesenteric ischemia TECHNIQUE: Imaging protocol: Computed tomographic angiography of the abdomen and pelvis with intravenous contrast material. 3D rendering (Not supervised by radiologist): MIP and/or 3D reconstructed images were created by the technologist. Radiation optimization: All CT scans at this facility use at least one of these dose optimization techniques: automated exposure control; mA and/or kV adjustment per patient size (includes targeted exams where dose is matched to clinical indication); or iterative reconstruction. Contrast material: OMNIPAQUE 350; Contrast volume: 85 ml; Contrast route: INTRAVENOUS (IV); COMPARISON: CT ABDOMEN PELVIS W 10/28/2020 2:28 PM FINDINGS: Aorta: No aortic aneurysm. No aortic dissection. Celiac trunk and mesenteric arteries: No occlusion or significant stenosis. Renal arteries: No occlusion or significant stenosis. Right iliac arteries: No occlusion or significant stenosis. Left iliac arteries: No occlusion or significant stenosis. Liver: No mass. Gallbladder and bile ducts: Cholelithiasis. Pancreas: Unremarkable. No mass. No ductal dilation. Spleen: Unremarkable. No splenomegaly. Adrenals: Unremarkable. No mass. Kidneys and ureters: Unremarkable. No solid mass. No hydronephrosis. Stomach and bowel: Question minimal element of infectious or inflammatory colitis with evaluation limited due to incomplete distention. Appendix: No evidence of appendicitis. Intraperitoneal space: Unremarkable. No free air. No significant fluid collection. Lymph nodes: Unremarkable. No enlarged lymph nodes. Urinary bladder: Unremarkable. No mass. Reproductive: Unremarkable as visualized. Bones/joints: No acute fracture. No dislocation. Soft tissues: Unremarkable. IMPRESSION: Question minimal element of infectious or inflammatory colitis with evaluation limited due to incomplete distention. Clinically correlate. Dictated and Authenticated by: Levon Villanueva MD. Ordering:KYLAH Dos Santos MD
--- NOTE | 2020-11-17 06:05 | NUR.NOTE ---
gave care management referral for rct to give patient ride home after hrs rct needs authorization [facility] Nursing Note:
--- NOTE | 2020-11-17 09:41 | W.ED.FU ---
Follow Up Plan: I received a call back from radiology regarding CT abdomen/pelvis performed this morning prior to my arrival and after patient discharge. Callback noted adenopathy not noted in [facility] read. I discussed this finding with Dr. Liu, patient's PCP, who stated that adenopathy is well known to the patient and their office, and patient has been worked up previously for this.
--- NOTE | 2020-11-17 10:07 | CMACTNOTE_ITS ---
- If Service Date Differs Date of service: 11/17/20 Time of Service: 10:07 Care Management Activity Note Nona presents in the ED via EMS for abdominal pain and colitis. She is transported back home via [facility] upon discharge. CM completes an authorization form and forwards the form to [facility] via fax.
[2020-11-18 10:32] LABS: Campylobacter PCR Negative (Negative); Salmonella PCR Negative (Negative); Shiga Toxin PCR Negative (Negative); Shigella/Enteroinvasive Ecoli Negative (Negative)
== END 2020-11-17 06:34 | disposition home or self-care (01) ==
PROVIDERS: Emergency Provider Emergency Medicine; PCP Internal Medicine
DX: R19.5 Other fecal abnormalities (principal); K52.9 Noninfective gastroenteritis and colitis, unspecified
CPT/HCPCS: 36415; 74175; 80053; 83690; 86850; 86900; 86901; 87505; 96374; 99285; 80320; 81003; 82248; 83605; 83735; 85025; 85610; 85730; J0780; J3490

== ENCOUNTER 2020-11-18 13:38 | Outpatient (REF) | payer OTHER, SELFPAY ==
[2020-11-19 18:35] LABS: COVID-19 RT-PCR UVMMC Result Negative (Negative)
== END 2020-11-18 13:58 ==
LOC: NCHCN 13:38
PROVIDERS: PCP Internal Medicine; Visit Provider Family Medicine
DX: Z20.828 Contact with and (suspected) exposure to other viral communicable diseases (principal)
CPT/HCPCS: U0003

== ENCOUNTER 2020-11-18 15:09 | Outpatient (REF) | payer OTHER, SELFPAY | END 2020-11-18 15:29 | LOC: NCHCN 15:09 | PROVIDERS: PCP Internal Medicine; Visit Provider Family Medicine | DX: K52.9 Noninfective gastroenteritis and colitis, unspecified (principal) | CPT/HCPCS: 87046 ==

== ENCOUNTER 2021-02-20 12:27 | Outpatient (REF) | payer OTHER, SELFPAY ==
[2021-02-20 13:33] LABS: Bilirubin Negative (Negative); Blood Negative (Negative); Clarity Clear (Clear); Glucose Negative (Negative); Ketones Negative (Negative); Leukocyte Esterase Negative (Negative); Nitrite Negative (Negative); Specific Gravity 1.015 (1.005-1.025); Urobilinogen 0.2 EU/dL (Up TO 0.2); pH 7.5 (5-8)
== END 2021-02-20 12:28 | disposition home or self-care (01) ==
LOC: NCHCN 12:27
PROVIDERS: PCP Internal Medicine; Visit Provider Family Medicine
DX: R30.0 Dysuria (principal)
CPT/HCPCS: 81003

== ENCOUNTER 2021-02-25 02:04 | Outpatient (CLI) | payer OTHER, SELFPAY ==
--- NOTE | 2021-02-25 | DI.CT_ITS ---
Exam(s) CT CHEST W EXAM: CT CHEST W CLINICAL HISTORY: MEDIASTINAL LYMPHADENOPATHY,R59.0. TECHNIQUE: Imaging Protocol: Axial CT angiography was performed with multi-slice acquisition and mu lti-planar and/or 3D reconstructions. CONTRAST MATERIAL: Intravenous: Omnipaque 350 Contrast volume:structured data in ml COMPARISON: CT CT CHEST PE CTA from 10/31/2020 FINDINGS: CT examination of the chest was performed with intravenous infusion of 70 cc of Omnipaque 350. The current examination is compared with prior scan October 31, 2020. Previously described [address] in diameter right middle lobe intrapulmonary nodule is unchanged in size and appearance. No new intrapulmonary nodule or consolidation. Bilateral hilar and mediastinal adenopathy and mild bilatera l axillary and supraclavicular adenopathy again noted. No gross interval change in appearance in com parison with prior study. Largest visible nodes are left hilar node measuring about 3 x 2 cm in diam eter seen on coronal images.. No evidence of pulmonary embolic disease. Thoracic aorta is of normal diameter, no thoracic aortic an eurysm or dissection, major branch vessels appear intact. No pleural effusion seen. Tracheobronchial tree appears intact. Images obtained through the upper abdomen show unremarkable appearance of the visualized portions of the liver, spleen, pancreas, adrenals, and kidneys. IMPRESSION: Stable hilar and mediastinal lymphadenopathy. No change in appearance of 10 millimeter right middle lobe intrapulmonary nodule. Please correlate with clinical findings and any biopsy results. RADIATION DOSE DELIVERED: 618.82mGy.cm Total DLP 618.82mGy.cm Total DLP DATA REPOSITORY: All CT scans at this facility are submitted to the National Radiology Data Registry (NRDR) Dose Index Registry (DIR) with the [employer] (ACR). RADIATION OPTIMIZATION: All CT scans at this facility use at least one of these dose optimization te chniques: automated exposure control; mA and/or kV adjustment per patient size (includes targeted exa ms where dose is matched to clinical indication); or iterative reconstruction.
[2021-02-25] MEDS: Omnipaque 350 MG/ML 100 ML BTL 70 ML IJ (15:33)
[2021-02-25] MEDS: Normal Saline - Diluent 50 ML VIAL IV (15:34)
[2021-02-25] MEDS: Normal Saline Flush 10 ML SYR IVP (15:34)
== END 2021-02-25 02:24 ==
PROVIDERS: PCP Family Medicine; Visit Provider Family Medicine
DX: R59.0 Localized enlarged lymph nodes (principal); R91.1 Solitary pulmonary nodule
CPT/HCPCS: 71260; J3490

== ENCOUNTER 2021-03-09 14:04 | Outpatient (REF) | payer OTHER, SELFPAY ==
[2021-03-09 21:24] LABS: Abs Immature Grans 0.02 10^3/uL (0.0-0.06); Absolute Basophil Count 0.04 10^3/uL (0.0-0.2); Absolute Eosinophil Count 0.25 10^3/uL (0.0-0.7); Absolute Lymphocyte Count 0.95 10^3/uL (1.2-3.4); Absolute Monocyte Count 0.52 10^3/uL (0.1-0.8); Absolute Neutrophil Count 2.81 10^3/uL (1.2-6.7); Basophils % 0.9; Eosinophils % 5.4; HGB 13.1 g/dL (11.2-15.7); Immature Grans % 0.4; Lymphocytes % 20.7; MCH 27.8 pg (27.0-33.0); MCHC 32.8 % (32.0-36.0); MCV 84.9 fL (80-95); Monocytes % 11.3; Neutrophils % 61.3; Nucleated RBC 0 %; Platelet Count 247 10^3/uL (130-400); RBC 4.71 10^6/uL (3.93-5.22); RDW 12.3 % (11.7-14.6); RDW-SD 38.1 fL; WBC 4.59 10^3/uL (4.4-10.8)
[2021-03-09 21:29] LABS: ESR 10 mm/hr (0-30)
[2021-03-09 21:45] LABS: ALT 27 U/L (14-59); AST 25 U/L (15-37); Albumin 3.6 g/dL (3.4-5.0); Alkaline Phosphatase 81 U/L (46-116); Anion Gap 11.3 mmol/L (3-11); BUN 11 mg/dL (7-18); Bilirubin, Total 0.7 mg/dL (0.2-1.0); CO2 23.7 mmol/L (21.0-32.0); CREATININE 0.8 mg/dL (0.55-1.02); Chloride 108 mmol/L (98-107); Glucose 98 mg/dL (74-106); Sodium 143 mmol/L (136-145); Total Protein 6.8 g/dL (6.4-8.2)
== END 2021-03-09 14:05 | disposition home or self-care (01) ==
LOC: NCHCN 14:04
PROVIDERS: PCP Family Medicine; Visit Provider Family Medicine
DX: K51.90 Ulcerative colitis, unspecified, without complications (principal)
CPT/HCPCS: 80053; 85652; 85025

== ENCOUNTER 2021-03-15 08:43 | Outpatient (REF) | payer OTHER, SELFPAY ==
[2021-03-17 16:32] LABS: Calprotectin <15.6 mcg/g
== END 2021-03-15 08:44 | disposition home or self-care (01) ==
LOC: NCHCN 08:43
PROVIDERS: PCP Family Medicine; Visit Provider Family Medicine
DX: K51.90 Ulcerative colitis, unspecified, without complications (principal)
CPT/HCPCS: 83993

== ENCOUNTER 2021-07-23 18:23 | Outpatient (REF) | payer OTHER, SELFPAY ==
[2021-07-25 10:53] LABS: COVID-19 RT-PCR UVMMC Result Negative (Negative)
== END 2021-07-23 18:24 | disposition home or self-care (01) ==
LOC: LBN 18:23
PROVIDERS: PCP Family Medicine; Visit Provider Physician Assistant Medical
DX: Z20.822 Contact with and (suspected) exposure to COVID-19 (principal); G43.909 Migraine, unspecified, not intractable, without status migrainosus
CPT/HCPCS: U0003

== ENCOUNTER 2021-07-27 17:24 | Outpatient (REF) | payer OTHER, SELFPAY ==
[2021-07-27 21:21] LABS: Abs Immature Grans 0.02 10^3/uL (0.0-0.06); Absolute Basophil Count 0.06 10^3/uL (0.0-0.2); Absolute Eosinophil Count 0.37 10^3/uL (0.0-0.7); Absolute Lymphocyte Count 0.98 10^3/uL (1.2-3.4); Absolute Monocyte Count 0.63 10^3/uL (0.1-0.8); Absolute Neutrophil Count 3.89 10^3/uL (1.2-6.7); Eosinophils % 6.2; HCT 42.2 % (36.0-46.0); HGB 13.6 g/dL (11.2-15.7); Immature Grans % 0.3; Lymphocytes % 16.5; MCH 28.1 pg (27.0-33.0); MCHC 32.2 % (32.0-36.0); MCV 87.2 fL (80-95); Monocytes % 10.6; Neutrophils % 65.4; Nucleated RBC 0 %; Platelet Count 307 10^3/uL (130-400); RBC 4.84 10^6/uL (3.93-5.22); RDW 11.9 % (11.7-14.6); WBC 5.95 10^3/uL (4.4-10.8)
[2021-07-27 21:24] LABS: ESR 15 mm/hr (0-30)
[2021-07-27 21:50] LABS: Hemoglobin A1C 6.2 % (<5.7)
[2021-07-27 22:38] LABS: ALT 28 U/L (14-59); AST 19 U/L (15-37); Albumin 3.9 g/dL (3.4-5.0); Alkaline Phosphatase 92 U/L (46-116); Anion Gap 9.1 mmol/L (3-11); BUN 11 mg/dL (7-18); Bilirubin, Total 0.5 mg/dL (0.2-1.0); CO2 29.9 mmol/L (21.0-32.0); CREATININE 0.8 mg/dL (0.55-1.02); Calcium 9.5 mg/dL (8.5-10.1); Calculated LDL 134 mg/dL (<100); Chloride 104 mmol/L (98-107); Cholesterol 212 mg/dL (<200); Glucose 96 mg/dL (74-106); HDL Cholesterol 50 mg/dL (40-60); Potassium 4.3 mmol/L (3.5-5.1); Sodium 143 mmol/L (136-145); Total Protein 7.3 g/dL (6.4-8.2); Triglyceride 141 mg/dL (<150)
== END 2021-07-27 17:25 | disposition home or self-care (01) ==
LOC: NCHCN 17:24
PROVIDERS: PCP Family Medicine; Visit Provider Family Medicine
DX: K51.00 Ulcerative (chronic) pancolitis without complications (principal); Z13.9 Encounter for screening, unspecified
CPT/HCPCS: 80053; 80061; 85652; 83036; 85025

== ENCOUNTER 2021-08-07 00:22 | Outpatient (CLI) | payer OTHER, SELFPAY ==
--- NOTE | 2021-08-07 | DI.MAMMO_ITS ---
Exam(s) MAMMO SCREENING EXAM: MAMMO SCREENING CLINICAL HISTORY: SCREENING, HEALTH MAINTENANCE, Z00.00 TECHNIQUE: Mammograms were interpreted according to the usual protocol including computer analysis w 8aweek CAD system, tomosynthesis and C-view imaging. COMPARISON: 2013 and 2017 FINDINGS: The breasts are composed of mainly fatty density , Breast Density category A. No suspicious masses or suspicious microcalcifications are seen. Mild scarring related to breast red uction. No skin thickening or abnormal axillary lymph nodes are seen. There has been no significant change from prior exams. IMPRESSION: BI-RADS Category 1, Negative mammogram Yearly screening mammography is recommended. Breast Density - Category A, fatty density. A negative radiographic report should not delay biopsy if a dominant or clinically suspicious mass is present. Up to ten percent of cancers are not identified on mammography. A negative report may reinforce clinical impression. Adenosis and dense breasts may obscure an underlying neoplasm. False positive reports average 6 to 10%. Patient will receive a letter notifying them of these results.
== END 2021-08-07 00:42 ==
PROVIDERS: PCP Family Medicine; Visit Provider Family Medicine
DX: Z00.00 Encounter for general adult medical examination without abnormal findings (principal); Z12.31 Encounter for screening mammogram for malignant neoplasm of breast
CPT/HCPCS: 77063; 77067

== ENCOUNTER 2021-08-13 17:52 | Outpatient (REF) | payer OTHER, SELFPAY ==
[2021-08-13 22:58] LABS: TSH (W/Ref FT4) 1.75 uIU/mL (0.36-3.74)
== END 2021-08-13 17:53 | disposition home or self-care (01) ==
LOC: LBN 17:52
PROVIDERS: PCP Family Medicine; Visit Provider Physician Assistant Medical
DX: E04.1 Nontoxic single thyroid nodule (principal)
CPT/HCPCS: 84443

== ENCOUNTER 2021-08-18 09:10 | Outpatient (REF) | payer OTHER, SELFPAY ==
[2021-08-18 14:51] LABS: FREE T4 1.08 ng/dL (0.76-1.46)
[2021-08-18 22:02] LABS: T3,Free 3.4 pg/mL (2.8-5.3)
[2021-08-19 17:12] LABS: T3, Total 145 ng/dL (97-169)
== END 2021-08-18 09:11 | disposition home or self-care (01) ==
LOC: NCHCN 09:10
PROVIDERS: PCP Family Medicine; Visit Provider Family Medicine
DX: E04.1 Nontoxic single thyroid nodule (principal)
CPT/HCPCS: 84439; 84443; 84480; 84481

== ENCOUNTER 2021-10-07 09:53 | Emergency (ER) | payer OTHER, SELFPAY ==
[2021-10-07] VITALS (44 sets, daily range): BP systolic 134–173; BP diastolic 72–105; PULSE 48–62; RESP 8–21; TEMP 36.7; O2SAT 93–98
--- NOTE | 2021-10-07 09:45 | RT.EKG_ITS ---
APPROVED REPORT Exam: Resting ECG Reason for Exam: dizziness, sob Patient Location: E HR:49 bpm ECG Measurements Heart Rate 49 AXIS AZ 168 P 51 QRSd 96 QRS -18 QT 417 T 80 QTc 378 Conclusion Sinus bradycardia...rate< 60 Probable LVH with secondary repol abnrm...multiple LVH criteria no STEMI, non-diagnostic EKG I have reviewed and interpreted ECG and agree with software generated interpretation.
--- NOTE | 2021-10-07 10:15 | DI.RAD_ITS ---
Exam(s) XR PORTABLE CHEST AP EXAM: XR PORTABLE CHEST AP CLINICAL HISTORY: SOB, PUI. TECHNIQUE: 2D digital imaging was performed. COMPARISON: CR XR shoulder RT complete 2+V from 12/20/[address] CHEST W from 02/25/[address] CHEST W from 02/25/2021 FINDINGS: Heart size is upper normal. The are hilar regions are slightly prominent prior CT scan revealed bilateral hilar and mediastinal a denopathy (February 2021). No new confluent infiltrates nor pleural effusions. No pulmonary edema. IMPRESSION: No acute pulmonary findings evident on this portable AP view. However, please note that there is pro bably hilar and mediastinal adenopathy, given findings on the chest CT scan of February 2021. DATA REPOSITORY: RADIATION DOSE DELIVERED: All CT scans at this facility use at least one of these dose optimization techniques: automated exposure control; mA and/or kV adjustment per patient size (includes targeted e xams where dose is matched to clinical indication); or iterative reconstruction.
--- NOTE | 2021-10-07 10:17 | W.ED.GENAD ---
Discharge Plan Disposition Patient Disposition: HOME Condition: Stable Discharge Details Clinical Impression: Exertional shortness of breath Primary Care Provider: Claudio Michaud ED Provider: Anni Byrd Home Meds and New Rx's Prescriptions: No Action No Known Home Meds RF: 0 Discharge Instructions Instructions: Dyspnea (ED) Additional Instructions: Keep your scheduled appointment tomorrow. At this time x-ray, blood work and EKG all within normal limit. No evidence to suggest with causing the shortness of breath. Follow up with primary care provider in 3-5 days. Return to ED sooner if any worsening shortness of breath, chest pain or concerns. Increase oral fluids. Stand Alone Forms: Work Release Referrals: Claudio Michaud MD [Primary Care Provider] - Medical Decision Making 56-year-old female presents to the ER chief complaint of shortness of breath which began yesterday, dizziness, right-sided headache and bloated abdominal feeling. 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 If continued until this morning when she woke up with continued shortness of breath worse with exertion. She also reports some dizziness and [place] [facility] [place]. She was recently placed on antibiotics for a questionable ear infection and finished prednisone 2 days ago for inflammation. She denies any chest pain, fever nausea vomiting diarrhea. Work-up ordered including serial troponins, EKG, portable chest x-ray and Covid test. CBC is largely unremarkable, CMP also largely unremarkable. Serial troponins within normal limits. BNP is also unremarkable at 59. D-dimer is 328. Covid is negative. Chest x-ray FINDINGS: Heart size is upper normal. The are hilar regions are slightly prominent prior CT scan revealed bilateral hilar and mediastinal adenopathy (February 2021). No new confluent infiltrates nor pleural effusions. No pulmonary edema. IMPRESSION: No acute pulmonary findings evident on this portable AP view. However, please note that there is probably hilar and mediastinal adenopathy, given findings on the chest CT scan of February 2021. Discussed results of work-up with patient who verbalized understanding. She has remained hemodynamically stable throughout stay. Will discharge patient with instructions to keep her appointment tomorrow. Discuss strict return instructions, verbalized understanding. This text was generated using [employer] system, please disregard any oddities of phrase or misspellings. HPI General Mode of arrival: EMS. Date/Time Provider Initiated Documentation: 10/07/21 09:56. Limitations to Documentation: no limitations. Information obtained by: patient, EMS, RN notes reviewed and old records reviewed. HPI Narrative: 56-year-old female presents to the ER chief complaint of shortness of breath which began yesterday, dizziness, right-sided headache and bloated abdominal feeling. 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 If continued until this morning when she woke up with continued shortness of breath worse with exertion. She also reports some dizziness and is scheduled [place] [facility] [place]iauricular [place]. She was recently placed on antibiotics for a questionable ear infection and finished prednisone 2 days ago for inflammation. She denies any chest pain, fever nausea vomiting diarrhea. Related Data Home Medications Medication Instructions Recorded Confirmed Unknown [No Known Home Meds] 10/07/21 10/07/21 Allergies Allergy/AdvReac Type Severity Reaction Status Date / Time mold Allergy Unverified 10/07/21 10:16 General Stated Complaint: SOB SILVA: 2 Review of Systems All systems reviewed & are unremarkable except as noted in HPI and below Cardiovascular Cardiovascular: Denies chest pain, Reports dyspnea and Reports dyspnea on exertion Respiratory Respiratory: Denies cough, Denies hemoptysis, Reports dyspnea, Reports dyspnea on exertion and Denies wheezing Gastrointestinal Gastrointestinal: Reports bloating Allergic/Immunologic Allergic/Immunologic: Denies wheezing [facility] All Active Problems (Updated 10/07/21 @ 14:02 by Anni Byrd) Exertional shortness of breath (Acute) Surgical History History of hysterectomy Social History Smoking/Tobacco Use Status: Former Tobacco Use Quit Date: 10/24/19 Smoking risk assessment performed?: Yes Drug use: Never Substance use type: does not use Do you feel safe at home: Yes Do you feel safe in your relationship?: Yes Exam Narrative Exam Narrative: Constitutional: Alert and oriented x3. Appears stated age. Normal body habitus. Head: Normocephalic, no trauma. Eyes: Pupils PERRL, Red reflex noted, EOM's intact. Eyelids symmetrical without lesions, discharge, or swelling. ENT: Bilateral TM's WNL, External ear normal to inspection, no mastoid TTP, swelling, or erythema, Nasal turbinates WNL, no nasal discharge. Normal dentition, Posterior pharynx WNL, no exudate. Chest: RRR, Normal S1, S2, distal pulses intact. Resp: Lungs clear to auscultation bilaterally, no wheezes, rales, or rhonchi. Abdomen: Soft, non-distended, Normoactive bowel sounds all 4 quads. Musculoskeletal: Normal gait, 5/5 strength to all four extremities. Skin: No suspicious rashes or lesions. Capillary refill less than 2 sec. Neurologic: Cranial nerves II-XII intact. Alert and oriented x 3. Motor: No deficits noted. Sensory: Intact bilaterally all 4 extremities. Reflexes: DTR's intact bilaterally.. Hematologic/Lymphatic: No ecchymosis, no lymphadenopathy. Course Vital Signs Vital signs: Vital Signs Temperature 36.7 C 10/07/21 10:09 Pulse 53 L 10/07/21 10:09 Respiratory Rate 16 10/07/21 10:09 Blood Pressure 158/81 H 10/07/21 10:09 Pulse Oximetry 97 10/07/21 10:09 Temperature 36.7 C 10/07/21 10:09 Pulse 53 L 10/07/21 10:09 Respiratory Rate 16 10/07/21 10:09 Respiratory Effort 10/07/21 10:09 Blood Pressure 158/81 H 10/07/21 10:09 Blood Pressure Position Supine 10/07/21 10:09 Pulse Oximetry 97 10/07/21 10:09 Oxygen Delivery Method Room Air 10/07/21 10:09 Oxygen Flow Rate 0 10/07/21 10:09 Pain Level 2 10/07/21 10:09
[2021-10-07 10:37] LABS: Source Nasal/Nares
[2021-10-07 10:37] LABS: Abs Immature Grans 0.05 10^3/uL (0.0-0.06); Absolute Basophil Count 0.12 10^3/uL (0.0-0.2); Absolute Eosinophil Count 0.42 10^3/uL (0.0-0.7); Absolute Lymphocyte Count 1.21 10^3/uL (1.2-3.4); Absolute Monocyte Count 0.91 10^3/uL (0.1-0.8); Absolute Neutrophil Count 4.99 10^3/uL (1.2-6.7); Basophils % 1.6; Eosinophils % 5.5; HCT 40.6 % (36.0-46.0); HGB 13.4 g/dL (11.2-15.7); Immature Grans % 0.6; Lymphocytes % 15.7; MCH 28.8 pg (27.0-33.0); MCV 87.1 fL (80-95); MPV 10.1 fL (8.0-11.0); Monocytes % 11.8; Neutrophils % 64.8; Nucleated RBC 0 %; Platelet Count 302 10^3/uL (130-400); RBC 4.66 10^6/uL (3.93-5.22); RDW 12.3 % (11.7-14.6)
[2021-10-07 11:02] LABS: ALT 20 U/L (14-59); AST 13 U/L (15-37); Albumin 3.3 g/dL (3.4-5.0); Alkaline Phosphatase 73 U/L (46-116); Anion Gap 6.7 mmol/L (3-11); BUN 25 mg/dL (7-18); Bilirubin, Total 0.5 mg/dL (0.2-1.0); CO2 26.3 mmol/L (21.0-32.0); CREATININE 0.8 mg/dL (0.55-1.02); Calcium 8.6 mg/dL (8.5-10.1); Chloride 104 mmol/L (98-107); Glucose 94 mg/dL (74-106); NT-proBNP 59 pg/mL (<300); Sodium 137 mmol/L (136-145); Total Protein 6.4 g/dL (6.4-8.2); Troponin I < 50 ng/L (<or=60)
[2021-10-07 11:19] LABS: COVID-19 PCR Negative (Negative)
[2021-10-07 12:23] LABS: D-Dimer 328 ng/mlFEU (<500)
[2021-10-07 13:44] LABS: Troponin I < 50 ng/L (<or=60)
== END 2021-10-07 14:18 | disposition home or self-care (01) ==
PROVIDERS: Emergency Provider Registered Nurse Emergency; PCP Family Medicine
DX: R06.02 Shortness of breath (principal); R42 Dizziness and giddiness; R51.9 Headache, unspecified
CPT/HCPCS: 36415; 80053; 87635; 93005; 99284; 71045; 83735; 83880; 84484; 85025; 85379; 93010; 99283

== ENCOUNTER 2021-11-05 19:23 | Outpatient (REF) | payer OTHER, SELFPAY ==
[2021-11-07 14:58] LABS: COVID-19 RT-PCR UVMMC Result Negative (Negative)
== END 2021-11-05 19:24 | disposition home or self-care (01) ==
LOC: LBN 19:23
PROVIDERS: PCP Family Medicine; Visit Provider Physician Assistant Medical
DX: Z20.822 Contact with and (suspected) exposure to COVID-19 (principal); J02.9 Acute pharyngitis, unspecified
CPT/HCPCS: U0003

== ENCOUNTER 2021-11-09 15:15 | Outpatient (REF) | payer OTHER, SELFPAY ==
[2021-11-10 12:58] LABS: COVID-19 RT-PCR UVMMC Result Negative (Negative)
== END 2021-11-09 15:16 | disposition home or self-care (01) ==
LOC: NCHCN 15:15
PROVIDERS: PCP Family Medicine; Visit Provider Nurse Practitioner Family
DX: Z20.822 Contact with and (suspected) exposure to COVID-19 (principal); R09.89 Other specified symptoms and signs involving the circulatory and respiratory systems
CPT/HCPCS: U0003

== ENCOUNTER 2022-02-11 21:28 | Outpatient (REF) | payer OTHER, SELFPAY ==
[2022-02-11 20:55] LABS: Abs Immature Grans 0.01 10^3/uL (0.0-0.06); Absolute Basophil Count 0.06 10^3/uL (0.0-0.2); Absolute Eosinophil Count 0.31 10^3/uL (0.0-0.7); Absolute Lymphocyte Count 1.08 10^3/uL (1.2-3.4); Absolute Monocyte Count 0.58 10^3/uL (0.1-0.8); Absolute Neutrophil Count 3.37 10^3/uL (1.2-6.7); Basophils % 1.1; Eosinophils % 5.7; HCT 40.4 % (36.0-46.0); HGB 13.2 g/dL (11.2-15.7); Immature Grans % 0.2; MCH 28.4 pg (27.0-33.0); MCHC 32.7 % (32.0-36.0); MCV 87.1 fL (80-95); MPV 10.9 fL (8.0-11.0); Monocytes % 10.7; Neutrophils % 62.3; Platelet Count 278 10^3/uL (130-400); RBC 4.64 10^6/uL (3.93-5.22); RDW 11.9 % (11.7-14.6); RDW-SD 37.9 fL; WBC 5.41 10^3/uL (4.4-10.8)
[2022-02-11 21:14] LABS: ALT 27 U/L (14-59); AST 25 U/L (15-37); Albumin 3.8 g/dL (3.4-5.0); Alkaline Phosphatase 89 U/L (46-116); Anion Gap 7.3 mmol/L (3-11); BUN 13 mg/dL (7-18); Bilirubin, Total 0.6 mg/dL (0.2-1.0); CO2 27.7 mmol/L (21.0-32.0); CREATININE 0.7 mg/dL (0.55-1.02); Calcium 9.5 mg/dL (8.5-10.1); Chloride 105 mmol/L (98-107); Glucose 93 mg/dL (74-106); Potassium 3.9 mmol/L (3.5-5.1); Sodium 140 mmol/L (136-145); Total Protein 6.8 g/dL (6.4-8.2)
[2022-02-13 12:33] LABS: COVID-19 RT-PCR UVMMC Result Negative (Negative)
== END 2022-02-11 21:29 | disposition home or self-care (01) ==
LOC: LBN 21:28
PROVIDERS: PCP Family Medicine; Visit Provider Family Medicine
DX: R53.83 Other fatigue (principal); Z20.822 Contact with and (suspected) exposure to COVID-19
CPT/HCPCS: 80053; U0003; 85025

== ENCOUNTER 2022-02-15 12:02 | Outpatient (REF) | payer OTHER, SELFPAY ==
[2022-02-15 17:00] LABS: Hemoglobin A1C 6.1 % (<5.7)
[2022-02-16 10:12] LABS: ESR 10 mm/hr (0-30)
[2022-02-16 10:41] LABS: Lyme Ab w Rflx to Lyme Confirm Negative (Negative)
[2022-02-17 20:55] LABS: Anaplasma phagocytophilum Negative (Negative); B. miyamotoi PCR Negative (Negative); Babesia divergens/MO-1 Negative (Negative); Babesia duncani Negative (Negative); Babesia microti Negative (Negative); Ehrlichia chaffeensis Negative (Negative); Ehrlichia ewingii/canis Negative (Negative); Ehrlichia muris eauclairensis Negative (Negative)
== END 2022-02-15 12:03 | disposition home or self-care (01) ==
LOC: NCHCN 12:02
PROVIDERS: PCP Family Medicine; Visit Provider Family Medicine
DX: R53.83 Other fatigue (principal); R73.03 Prediabetes; F32.9 Major depressive disorder, single episode, unspecified; M25.50 Pain in unspecified joint
CPT/HCPCS: 85652; 87798; 83036; 86618

== ENCOUNTER 2022-06-05 11:40 | Outpatient (REF) | payer OTHER, SELFPAY ==
[2022-06-05 17:28] LABS: Abs Immature Grans 0.02 10^3/uL (0.0-0.06); Absolute Basophil Count 0.06 10^3/uL (0.0-0.2); Absolute Eosinophil Count 0.43 10^3/uL (0.0-0.7); Absolute Monocyte Count 0.66 10^3/uL (0.1-0.8); Absolute Neutrophil Count 3.81 10^3/uL (1.2-6.7); Eosinophils % 7.2; HCT 41.3 % (36.0-46.0); HGB 13.7 g/dL (11.2-15.7); Immature Grans % 0.3; Lymphocytes % 16.7; MCH 28.4 pg (27.0-33.0); MCHC 33.2 % (32.0-36.0); MCV 86 fL (80-95); MPV 11.5 fL (8.0-11.0); Neutrophils % 63.8; Platelet Count 301 10^3/uL (130-400); RBC 4.82 10^6/uL (3.93-5.22); RDW 12.4 % (11.7-14.6); WBC 5.98 10^3/uL (4.4-10.8)
[2022-06-05 17:31] LABS: ESR 27 mm/hr (0-30)
[2022-06-05 17:38] LABS: ALT 25 U/L (14-59); AST 19 U/L (15-37); Albumin 3.7 g/dL (3.4-5.0); Alkaline Phosphatase 82 U/L (46-116); BUN 18 mg/dL (7-18); Bilirubin, Total 0.6 mg/dL (0.2-1.0); CREATININE 0.8 mg/dL (0.55-1.02); Calcium 9.3 mg/dL (8.5-10.1); Chloride 107 mmol/L (98-107); Glucose 109 mg/dL (74-106); Potassium 4.3 mmol/L (3.5-5.1); Sodium 144 mmol/L (136-145); Total Protein 7.3 g/dL (6.4-8.2)
[2022-06-06 20:30] LABS: Campylobacter PCR Negative (Negative); Salmonella PCR Negative (Negative); Shiga Toxin PCR Negative (Negative); Shigella/Enteroinvasive Ecoli Negative (Negative)
== END 2022-06-05 11:41 | disposition home or self-care (01) ==
LOC: LBN 11:40
PROVIDERS: PCP Family Medicine; Visit Provider Nurse Practitioner Family
DX: R19.4 Change in bowel habit (principal); R10.84 Generalized abdominal pain
CPT/HCPCS: 80053; 85652; 87493; 87505; 82272; 83630; 85025; 87177

== ENCOUNTER 2022-06-16 15:21 | Outpatient (REF) | payer OTHER, SELFPAY ==
[2022-06-18 10:42] LABS: COVID-19 RT-PCR UVMMC Result Negative (Negative)
== END 2022-06-16 15:22 | disposition home or self-care (01) ==
LOC: LBN 15:21
PROVIDERS: PCP Family Medicine; Visit Provider Physician Assistant Medical
DX: Z20.822 Contact with and (suspected) exposure to COVID-19 (principal)
CPT/HCPCS: U0003